=== PATIENT | male | born 1990 | race Hispanic/Latino ===

== ENCOUNTER 2022-07-24 14:56 | Emergency (ER) | payer OTHER ==
[~2022-07-24] VITALS: Ht 180.3 cm; Wt 107.5 kg
[2022-07-24 15:02] VITALS: BP 119/73
[2022-07-24] MEDS ORDERED: LIDOCAINE HCL 1% 10 ML VIAL ONE (18:13)
[2022-07-24] MEDS ORDERED: LIDOCAINE HCL MPF 1% 5ML VIAL IM SCH (18:30)
[2022-07-24] MEDS ORDERED: BACITRACIN 1 EACH PACKET TP ONE ×2 (18:37→19:00)
[2022-07-24] MEDS ORDERED: NAPR500T6 PO (18:40)
[2022-07-24] MEDS ORDERED: BACI30OI6 TP (18:40)
[2022-07-24] MEDS ORDERED: IBUPROFEN 600 MG TABLET PO ONE (19:00)
== END 2022-07-24 18:53 | disposition home or self-care (01) ==
LOC: EDH 14:56
DX: S01.81XA Laceration without foreign body of other part of head, initial encounter (principal); M79.652 Pain in left thigh; Z79.1 Long term (current) use of non-steroidal anti-inflammatories (NSAID); X58.XXXA Exposure to other specified factors, initial encounter; Y93.89 Activity, other specified; Y92.89 Other specified places as the place of occurrence of the external cause; Y99.8 Other external cause status
CPT/HCPCS: 99284; 12013; 73552; J3490